=== PATIENT | male | born 1960 | race African-American/Black ===

== ENCOUNTER 2021-05-23 21:46 | Emergency (ER) | payer MEDICAID ==
[~2021-05-23] VITALS: Ht 177.8 cm; Wt 91.0 kg
[2021-05-24 00:06] VITALS: BP 152/94
== END 2021-05-23 23:51 | disposition home or self-care (01) ==
LOC: ER 21:46
DX: R42 Dizziness and giddiness (principal); I11.0 Hypertensive heart disease with heart failure; I50.9 Heart failure, unspecified
CPT/HCPCS: 93005; 99283